=== PATIENT | female | born 1950 | race Caucasian/White ===

== ENCOUNTER 2021-12-31 10:51 | Emergency (ER) | payer MEDICARE, OTHER ==
[2021-12-31 11:13] VITALS: BP 187/79; PULSE 64
== END 2021-12-31 12:33 | disposition home or self-care (01) ==
LOC: JP.ED 10:51
DX: R55 Syncope and collapse (principal); E11.9 Type 2 diabetes mellitus without complications; I10 Essential (primary) hypertension; Z79.84 Long term (current) use of oral hypoglycemic drugs
CPT/HCPCS: 36415; 80048; 85025; 99282; 99284